=== PATIENT | female | born 1955 | race Caucasian/White ===

== ENCOUNTER → 2020-09-19 | Outpatient (CLI) | payer OTHER ==
[~2020-09-19] MED LIST: ABILIFY5 MG PO; ATIVAN0.5 MG PO; AUGMENTIN 500-1 EACH PO; CYCLOBENZAPRINE10 MG PO; DIOVAN160 MG PO; LEXAPRO20 MG PO; LIPITOR40 MG PO; LYRICA150 MG PO; NORVASC5 MG PO; OXISTAT TOP; SUMATRIPTAN SU100 MG PO; TANDEM PLUS CA1 EACH PO; TYLENOL WITH C1 EACH PO; WELLBUTRIN XL300 MG PO; XYZAL5 MG PO
== END ==
LOC: RAD 10:52
PROVIDERS: ATTEND Family Medicine
DX: M54.42 Lumbago with sciatica, left side (principal)
CPT/HCPCS: 72110; 72200

== ENCOUNTER 2024-02-11 10:55 | Inpatient (IN) | payer OTHER ==
[~2024-02-11] VITALS: Ht 152.4 cm; Wt 111.1 kg
[2024-02-11] MEDS: SODIUM CHLORIDE 0.9% 1000ML 1,000 ML IV STA (11:55)
[2024-02-11 11:56] LABS: BASOPHILS # (AUTO) 0.1 (0.0-0.1); BASOPHILS % 0.3 % (0.0-1.0); EOSINOPHILS # (AUTO) 0.1 (0.0-0.4); EOSINOPHILS % 0.2 % (0.0-6.0); HEMATOCRIT 45.8 % (34.2-44.1); HEMOGLOBIN 14.7 g/dL (12.0-16.0); LYMPHOCYTES # (AUTO) 1.4 (1.0-3.2); LYMPHOCYTES % 4.8 % (18.0-39.1); MEAN CORPUSCULAR HEMOGLOBIN 26.6 pg (28-32); MEAN CORPUSCULAR HGB CONC 32.1 g/dL (31-35); MONOCYTES # (AUTO) 1.4 (0.2-0.8); MONOCYTES % 4.8 % (4.4-11.3); NEUTROPHILS # (AUTO) 25.8 (2.1-6.9); NEUTROPHILS % 88.4 % (38.7-80.0); PLATELET COUNT 348 x10e3/uL (140-360); RED BLOOD COUNT 5.52 x10e6/uL (3.6-5.1); RED CELL DISTRIBUTION WIDTH 15.3 % (11.7-14.4); WHITE BLOOD COUNT 29.21 x10e3/uL (4.8-10.8)
[2024-02-11] MEDS: ONDANSETRON HCL INJ 2MG/ML 2ML 2 MG/ML VIAL IV STA (12:05)
[2024-02-11 12:07] LABS: INR 1.02; PROTHROMBIN TIME 14.1 seconds (11.9-14.5)
[2024-02-11 12:08] LABS: PARTIAL THROMBOPLASTIN TIME 25.8 seconds (23.8-35.5)
[2024-02-11 12:14] LABS: CLARITY,URINE CLOUDY (CLEAR); COLOR,URINE YELLOW (YELLOW); PH,URINE 5.5 (5 - 7)
[2024-02-11 12:15] LABS: BILIRUBIN,URINE SMALL (NEGATIVE); GLUCOSE, URINE 500 (NEGATIVE); KETONES,URINE TRACE (NEGATIVE); LEUKOCYTE ESTERASE ,URINE SMALL (NEGATIVE); NITRITE,URINE POSITIVE (NEGATIVE); PROTEIN,URINE DIPSTICK 2+ (NEGATIVE); URINE UROBILINOGEN 0.2 mg/dL (0.2 - 1)
[2024-02-11 12:19] LABS: ALBUMIN 3.4 g/dL (3.5-5.0); ALBUMIN/GLOBULIN RATIO 0.9 (0.8-2.0); ANION GAP 16.6 mmol/L (8-16); BILIRUBIN,TOTAL 0.9 mg/dL (0.2-1.2); CALCIUM 9.5 mg/dL (8.4-10.2); CREATININE, SERUM 1.66 mg/dL (0.57-1.11); MAGNESIUM 1.8 MG/DL (1.3-2.1); POTASSIUM 3.6 mmol/L (3.5-5.1)
[2024-02-11 12:21] LABS: BACTERIA,URINE MANY /HPF; EPITHELIAL CELLS,URINE FEW /LPF; RBC,URINE 0-5 /HPF (0-5); WBC,URINE (MAN) >50 /HPF (0-5)
[2024-02-11 12:26] LABS: TROPONIN I 0.016 ng/mL (0-0.300)
[2024-02-11] MEDS ORDERED: ONDANSETRON HCL INJ 2MG/ML 2ML 2 MG/ML VIAL IV PRN (14:00)
[2024-02-11] MEDS: Vancomycin IV 1 GM in SODIUM CHLORIDE 0.9% 250ML 250 ML IV ONE (14:26)
[2024-02-11] MEDS: SODIUM CHLORIDE 0.9% 1000ML 1,000 ML IV SCH (14:26)
[2024-02-11 14:41] LABS: BAND NEUTROPHILS % (MANUAL) 4 %; LYMPHOCYTES % (MANUAL) 3 % (19-48); MONOCYTES % (MANUAL) 4 % (3.4-9.0); NEUTROPHILS % (MANUAL) 86 % (40-74); PLATELET ESTIMATE ADEQUATE; PLATELET MORPHOLOGY COMMENT NORMAL; RBC MORPHOLOGY COMMENT NORMAL; REACTIVE LYMPHOCYTES 3
[2024-02-11 16:48] VITALS: BP 124/59; PULSE 98; RESP 16; TEMP 98.4; O2SAT 100
[2024-02-11 16:49] VITALS: BP 124/59; PULSE 98; RESP 16; TEMP 98.4; O2SAT 100
[2024-02-11 16:50] VITALS: BP 124/59; PULSE 98; RESP 16; TEMP 98.4; O2SAT 100
[2024-02-11] MEDS ORDERED: CLONIDINE HCL0.2 MG PO (18:36)
[2024-02-11] MEDS ORDERED: MONTELUKAST SOD10 MG PO (18:36)
[2024-02-11] MEDS ORDERED: CLONIDINE HCL0.1 MG PO (18:36)
[2024-02-11] MEDS ORDERED: BENICAR20 MG PO (18:36)
[2024-02-11] MEDS ORDERED: JARDIANCE10 MG PO (18:36)
[2024-02-11] MEDS ORDERED: CLONIDINE HCL 0.1 MG TAB PO PRN (18:45)
[2024-02-11] MEDS: ACETAMINOPHEN 325 MG TAB PO PRN (19:40)
[2024-02-11 20:00] VITALS: BP 106/63; PULSE 98; RESP 16; TEMP 98.7; O2SAT 96
[2024-02-11 20:34] VITALS: BP 106/63; PULSE 97; RESP 16; TEMP 98.7; O2SAT 96
[2024-02-11 23:52] VITALS: BP 106/63; PULSE 105; RESP 16; TEMP 98.6; O2SAT 94
[2024-02-12] VITALS (9 sets, daily range): BP systolic 99–128; BP diastolic 47–67; PULSE 50–104; RESP 18–20; TEMP 97.6–98.5; O2SAT 94–100
[2024-02-12 07:44] LABS: BASOPHILS # (AUTO) 0.1 (0.0-0.1); BASOPHILS % 0.3 % (0.0-1.0); EOSINOPHILS # (AUTO) 0.2 (0.0-0.4); EOSINOPHILS % 1.2 % (0.0-6.0); HEMATOCRIT 41.7 % (34.2-44.1); HEMOGLOBIN 12.9 g/dL (12.0-16.0); LYMPHOCYTES # (AUTO) 1.2 (1.0-3.2); LYMPHOCYTES % 6.9 % (18.0-39.1); MEAN CORPUSCULAR HEMOGLOBIN 26.4 pg (28-32); MEAN CORPUSCULAR HGB CONC 30.9 g/dL (31-35); MEAN CORPUSCULAR VOLUME 85.3 fL (81-99); MONOCYTES # (AUTO) 1.2 (0.2-0.8); MONOCYTES % 6.8 % (4.4-11.3); NEUTROPHILS # (AUTO) 14.4 (2.1-6.9); NEUTROPHILS % 83.8 % (38.7-80.0); PLATELET COUNT 289 x10e3/uL (140-360); RED BLOOD COUNT 4.89 x10e6/uL (3.6-5.1); RED CELL DISTRIBUTION WIDTH 15.3 % (11.7-14.4); WHITE BLOOD COUNT 17.23 x10e3/uL (4.8-10.8)
[2024-02-12 08:11] LABS: ALBUMIN 2.8 g/dL (3.5-5.0); ALBUMIN/GLOBULIN RATIO 0.9 (0.8-2.0); ANION GAP 13.4 mmol/L (8-16); BILIRUBIN,TOTAL 0.4 mg/dL (0.2-1.2); CALCIUM 9.4 mg/dL (8.4-10.2); CREATININE, SERUM 1.39 mg/dL (0.57-1.11); TOTAL PROTEIN 5.9 g/dL (6.5-8.1)
[2024-02-12 08:15] LABS: POTASSIUM 3.4 mmol/L (3.5-5.1)
[2024-02-12] MEDS: AMLODIPINE BESYLATE 10 MG TAB PO SCH (09:00)
[2024-02-12] MEDS: ATORVASTATIN 40 MG TAB PO SCH (10:15)
[2024-02-12] MEDS: MONTELUKAST SODIUM 10 MG TAB PO SCH (10:15)
[2024-02-12] MEDS: Morphine 2mg Syringe 2 MG/ML SYR IV PRN (10:16)
[2024-02-12] MEDS ORDERED: METOPROLOL TARTRATE INJ 1 MG/ML VIAL IV PRN (15:00)
[2024-02-12] MEDS ORDERED: ACETAMINOPHEN 325 MG TAB PO PRN (15:00)
[2024-02-12] MEDS ORDERED: POLYETHYLENE GLYCOL 3350 17 GM PACK PO PRN (15:00)
[2024-02-12] MEDS: DOCUSATE SODIUM 100 MG CAP PO SCH (16:46)
[2024-02-12] MEDS: POTASSIUM CHLORIDE 10MEQ EA PO ONE (16:46)
[2024-02-12] MEDS: FAMOTIDINE 20 MG TAB PO SCH (16:46)
[2024-02-12] MEDS: ASCORBIC ACID 500 MG TAB PO SCH (16:46)
[2024-02-12] MEDS: ACETAMINOPHEN/CODEINE 300MG - 30MG TAB PO PRN (19:43)
[2024-02-13] VITALS (9 sets, daily range): BP systolic 112–146; BP diastolic 65–80; PULSE 78–90; RESP 17–18; TEMP 97.7–98.2; O2SAT 95–98
[2024-02-13 05:29] LABS: BASOPHILS % 0.3 % (0.0-1.0); EOSINOPHILS # (AUTO) 0.4 (0.0-0.4); EOSINOPHILS % 3.7 % (0.0-6.0); HEMOGLOBIN 12.4 g/dL (12.0-16.0); LYMPHOCYTES # (AUTO) 1.6 (1.0-3.2); MEAN CORPUSCULAR HGB CONC 32.6 g/dL (31-35); MEAN CORPUSCULAR VOLUME 82.6 fL (81-99); MONOCYTES % 9.4 % (4.4-11.3); NEUTROPHILS # (AUTO) 7.3 (2.1-6.9); PLATELET COUNT 245 x10e3/uL (140-360); RED CELL DISTRIBUTION WIDTH 15.4 % (11.7-14.4); WHITE BLOOD COUNT 10.31 x10e3/uL (4.8-10.8)
[2024-02-13 05:50] LABS: ANION GAP 12.8 mmol/L (8-16); CALCIUM 9.4 mg/dL (8.4-10.2); CHOL/HDL RATIO 2.7 (3.0-3.6); CREATININE, SERUM 1.08 mg/dL (0.57-1.11); MAGNESIUM 1.8 MG/DL (1.3-2.1); PHOSPHORUS 2.3 MG/DL (2.3-4.7); POTASSIUM 3.8 mmol/L (3.5-5.1)
[2024-02-13 06:12] LABS: FREE T4 (FREE THYROXINE) 1.08 ng/dL (0.8-1.8); THYROID STIMULATING HORMONE 0.931 uIU/mL (0.350-4.940)
[2024-02-14 05:07] LABS: BASOPHILS % 0.4 % (0.0-1.0); EOSINOPHILS # (AUTO) 0.4 (0.0-0.4); EOSINOPHILS % 5.5 % (0.0-6.0); HEMATOCRIT 39.7 % (34.2-44.1); HEMOGLOBIN 12.3 g/dL (12.0-16.0); LYMPHOCYTES # (AUTO) 1.3 (1.0-3.2); LYMPHOCYTES % 18.8 % (18.0-39.1); MEAN CORPUSCULAR HEMOGLOBIN 26.1 pg (28-32); MEAN CORPUSCULAR VOLUME 84.3 fL (81-99); MONOCYTES # (AUTO) 0.9 (0.2-0.8); MONOCYTES % 13.7 % (4.4-11.3); NEUTROPHILS # (AUTO) 4.1 (2.1-6.9); NEUTROPHILS % 60.6 % (38.7-80.0); PLATELET COUNT 268 x10e3/uL (140-360); RED BLOOD COUNT 4.71 x10e6/uL (3.6-5.1); RED CELL DISTRIBUTION WIDTH 15.3 % (11.7-14.4); WHITE BLOOD COUNT 6.71 x10e3/uL (4.8-10.8)
[2024-02-14 05:49] LABS: ANION GAP 11.7 mmol/L (8-16); CALCIUM 8.8 mg/dL (8.4-10.2); CREATININE, SERUM 1.03 mg/dL (0.57-1.11); POTASSIUM 3.7 mmol/L (3.5-5.1)
[2024-02-14] MEDS ORDERED: ULTRAM 50MG50 MG PO (07:40)
[2024-02-14] MEDS ORDERED: CEFUROXIME500 MG PO (07:40)
[2024-02-14] MEDS ORDERED: ONDANSETRON ODT4 MG PO (07:40)
[2024-02-14] MEDS ORDERED: ACETAMINOPHEN325 M1 PO (07:40)
[2024-02-14] MEDS ORDERED: ASCORBIC ACID500 MG PO (07:40)
[2024-02-14 08:24] VITALS: BP 147/73; PULSE 78; RESP 18; TEMP 97.9; O2SAT 95
[2024-02-14 09:00] VITALS: BP 147/73; PULSE 78; RESP 18; TEMP 97.9; O2SAT 95
[2024-02-14 09:25] VITALS: BP_SYST 147
[2024-02-14] MEDS: TRAMADOL HCL 50 MG TAB PO ONE (09:29)
[2024-02-14] MEDS: ONDANSETRON HCL 4 MG ORAL DISINTEGRATING TAB PO PRN (10:07)
== END 2024-02-14 10:24 | disposition home or self-care (01) | DRG 872 ==
LOC: ER 11:01 → ERHOLD 13:51 → MED/SURG2 16:11
PROVIDERS: ADMIT Internal Medicine; ATTEND Internal Medicine
PROC: 3E0333Z Introduction of Anti-inflammatory into Peripheral Vein, Percutaneous Approach (ICD-10-PCS; principal; 2024-02-11)
DX: A41.51 Sepsis due to Escherichia coli [E. coli] (principal); N39.0 Urinary tract infection, site not specified; N17.9 Acute kidney failure, unspecified; E86.0 Dehydration; E87.6 Hypokalemia; I10 Essential (primary) hypertension; E11.9 Type 2 diabetes mellitus without complications; G47.30 Sleep apnea, unspecified; Z99.81 Dependence on supplemental oxygen; F32.A Depression, unspecified; F41.9 Anxiety disorder, unspecified; E04.1 Nontoxic single thyroid nodule; R53.81 Other malaise; H66.92 Otitis media, unspecified, left ear; E78.5 Hyperlipidemia, unspecified; I34.1 Nonrheumatic mitral (valve) prolapse; G89.11 Acute pain due to trauma; M54.2 Cervicalgia; Z11.52 Encounter for screening for COVID-19; V49.60XA Unspecified car occupant injured in collision with unspecified motor vehicles in traffic accident, initial encounter; Z79.84 Long term (current) use of oral hypoglycemic drugs; Z87.891 Personal history of nicotine dependence; Z82.49 Family history of ischemic heart disease and other diseases of the circulatory system
CPT/HCPCS: 36415; 70450; 71250; 72125; 72131; 80048; 80053; 80061; 81001; 82550; 82948; 83036; 83605; 83735; 84100; 84439; 84443; 84484; 85025; 85610; 85730; 87040; 87071; 87086; 87186; 87205; 87400; 87420; 93005; 94799; 99284; J0696; J2270; J2405; J7030; J7050; Q0162; U0002